=== PATIENT | female | born 1925 | race Caucasian/White ===

== ENCOUNTER 2016-09-12 08:21 | Emergency (ER) | payer MEDICARE, BC ==
[2016-09-12 10:14] LABS: SPECIFIC GRAVITY 1.015 (1.001-1.030); URINE BILIRUBIN NEGATIVE (NEGATIVE); URINE BLOOD NEGATIVE (NEGATIVE); URINE GLUCOSE (UA) NEGATIVE (NEGATIVE); URINE LEUKOCYTE ESTERASE NEGATIVE (NEGATIVE); URINE NITRITE NEGATIVE (NEGATIVE); URINE PROTEIN NEGATIVE (NEGATIVE); URINE UROBILINOGEN NORMAL (0-1 mg/dl)
[2016-09-12 10:15] LABS: URINE APPEARANCE CLEAR; URINE COLOR LIGHT YELLOW
--- NOTE | 2016-09-12 10:15 | US ---
Exam: Bilateral lower extremity venous ultrasound COMPARISON: None INDICATION: Elevated d-dimer. Leg swelling. FINDINGS: The deep venous system of both lower extremities was evaluated with color flow, compression, augmentation and spectral analysis. The deep venous system of both lower extremities from popliteal veins up to the common femoral veins is patent without evidence of DVT. Proximal calf veins appear patent as well. Nonspecific fluid collection was noted posterior to the left knee. IMPRESSION: 1. No evidence of DVT within either lower extremity. 2. Nonspecific fluid collection posterior to the left knee which may reflect a Galaviz's cyst. Report was uploaded to the EMR at 1010 hours 09/12/2016.
== END 2016-09-12 10:43 | disposition home or self-care (01) ==
LOC: ED 08:21
DX: M79.89 Other specified soft tissue disorders (principal); I11.0 Hypertensive heart disease with heart failure; I50.9 Heart failure, unspecified; G30.9 Alzheimer's disease, unspecified; D68.9 Coagulation defect, unspecified; F02.80 Dementia in other diseases classified elsewhere, unspecified severity, without behavioral disturbance, psychotic disturbance, mood disturbance, and anxiety; Z86.718 Personal history of other venous thrombosis and embolism; Z79.82 Long term (current) use of aspirin